=== PATIENT | male | born 1960 | race Caucasian/White ===

== ENCOUNTER 2023-09-14 10:41 | Emergency (ER) | payer SELFPAY ==
[2023-09-14] VITALS (10 sets, daily range): BP systolic 105–178; BP diastolic 71–89; PULSE 79–90; RESP 16–28; TEMP 37.1; O2SAT 90–96; BMI 19.9
--- NOTE | 2023-09-14 10:56 | ED.GENADULT ---
HPI - General Adult General Chief complaint: Shortness of Breath/Dyspnea Stated complaint: SOB, Asthma. Time Seen by Provider: 09/14/23 10:45 Source: patient Mode of arrival: Ambulatory Limitations: no limitations History of Present Illness HPI narrative: Patient is a 63-year-old male history of asthma. Is only on albuterol rescue inhaler. Has been on a inhaled steroid in the past but is not currently. Is here for evaluation of 2-3 days of increasing shortness of breath. He states that baseline he normally has some wheezing with a seems to be worse than normal. No fevers. Is having a cough. Chest pain secondary to the shortness of breath. No lower extremity swelling. Related Data Previous Rx's Medication Instructions Recorded prednisone 20 mg tablet 20 mg PO DAILY 6 days #6 tabs 09/14/23 Allergies Allergy/AdvReac Type Severity Reaction Status Date / Time No Known Drug Allergies Allergy Verified 09/14/23 11:55 Review of Systems Review of Systems Narrative: See HPI Patient History Social History Smoking Status: Never smoker Exam Initial Vital Signs Initial Vital Signs: Vital Signs Temperature 98.7 F 09/14/23 11:00 Pulse Rate 84 09/14/23 11:00 Respiratory Rate 20 09/14/23 11:00 Blood Pressure 178/89 H 09/14/23 11:00 Pulse Oximetry 92 09/14/23 11:00 Oxygen Delivery Method Room Air 09/14/23 11:00 Const General: cooperative and comfortable HENMT Head: normal to inspection and normocephalic Resp Effort & Inspection: cough, not labored, no retractions and tachypneic Auscultation: wheezes Cardio Rate: regular rate Rhythm: regular rhythm Skin General: no rashes or lesions noted Extrem General: No edema Course Orders Ordered: ED Orders 09/14/23 10:55 XR chest 1V Stat Discontinued Medications Albuterol/Ipratropium (Albuterol/Ipratropium 3 Ml Ampul) 3 ml INH Q20M PENDING SALE TO [facility] Stop: 09/14/23 11:41 Last Admin: 09/14/23 11:44 Dose: 3 ml Documented By: Admin: 09/14/23 11:20 Dose: 3 ml Documented By: Admin: 09/14/23 11:02 Dose: 3 ml Documented By: DARIUSZ Prednisone (Prednisone 20 Mg Tablet) 20 mg PO NOW ONE Stop: 09/14/23 10:56 Last Admin: 09/14/23 11:56 Dose: 20 mg Documented By: MACKENZIE Vital Signs Vital signs: Vital Signs - 8 hr 09/14/23 11:00 09/14/23 11:03 Temperature 98.7 F Pulse Rate 84 Respiratory Rate 20 Blood Pressure 178/89 H Pulse Oximetry 92 94 Oxygen Delivery Method Room Air Room Air Medical Decision Making Imaging Data Chest x-ray: Radiologist's Impression: PROCEDURE: XR CHEST 1V INDICATIONS: Shortness of breath TECHNIQUE: One view of the chest was acquired. COMPARISON: None. FINDINGS: Surgical changes and devices: None. Lungs and pleura: There is hyperinflation and chronic interstitial changes without focal infiltrate, pleural effusion or pneumothorax. Mediastinum: Mediastinal contours appear normal. Heart size is normal. Bones and chest wall: No suspicious bony lesions. Overlying soft tissues appear unremarkable. IMPRESSION: There is hyperinflation and chronic interstitial changes without focal infiltrate, pleural effusion or pneumothorax. MDM Narrative Medical decision making narrative: After nebulizer treatments patient is feeling much better. His lungs are clear. Chest x-ray shows no signs of pneumonia. No respiratory distress. Not hypoxic. No indication for antibiotics. Will discharge home with steroids for the next couple days. He was given return precautions follow-up instructions. He expressed understanding and agreement. Discharge Plan Departure Patient Disposition: Home Clinical Impression: Asthma with exacerbation Instructions: DI for Asthma -- Adult Activity Restrictions/Additional Instructions: Take the steroid as directed. Continue with the albuterol inhaler as needed. Contact your primary doctor for follow-up. Return to the emergency department for new symptoms. Prescriptions: New prednisone 20 mg tablet 20 mg PO DAILY 6 Days Qty: 6 0RF Referrals: Miscellaneous,[facility] [Primary Care Provider] - Stand Alone Forms: Patient Portal/API
[2023-09-14] MEDS: ALBUTEROL/IPRATROPIUM 3 ML AMPUL INH ×3 (11:02→11:44)
[2023-09-14] MEDS: predniSONE 20 MG TABLET PO (11:56)
== END 2023-09-14 12:37 | disposition home or self-care (01) ==
PROVIDERS: Emergency Provider Emergency Medicine
DX: J45.901 Unspecified asthma with (acute) exacerbation (principal)
CPT/HCPCS: 71045; 94640; 99283; 99284